=== PATIENT | male | born 1950 | race Hispanic/Latino ===

== ENCOUNTER 2018-07-04 16:33 | Emergency (ER) | payer MEDICARE ==
[2018-07-04] MEDS ORDERED: ORPHENADRINE CITRATE 30 MG/ML ML ONE (18:07)
[2018-07-04] MEDS ORDERED: IBUPROFEN 600 MG TABLET ONE (18:08)
== END 2018-07-04 19:17 | disposition home or self-care (01) ==
LOC: EDH 16:33
DX: M62.838 Other muscle spasm (principal); M25.511 Pain in right shoulder; V49.49XA Driver injured in collision with other motor vehicles in traffic accident, initial encounter; Y93.89 Activity, other specified; Y92.89 Other specified places as the place of occurrence of the external cause; Y99.8 Other external cause status
CPT/HCPCS: 93005; 96372; 99283; J2360